=== PATIENT | male | born 1995 | race American Indian/Alaskan Native ===

== ENCOUNTER 2018-01-06 18:10 | Emergency (ER) | payer SELFPAY ==
[2018-01-06 18:59] VITALS: BP 117/74
[2018-01-06 21:04] LABS: Bilirubin,Urine NEG (Negative); Blood,Urine SM (Negative); Color,Urine Yellow (Yellow); Mucus,Urine FEW /HPF; Nitrite,Urine NEG (Negative); Protein,Urine <15 mg/dL mg/dL (Negative)
[2018-01-06 21:05] LABS: WBC,Urine > 182.0 /HPF (0.0-6.0)
[2018-01-07] MEDS ORDERED: ZITHROMAX PO ONE (00:31)
[2018-01-07] MEDS ORDERED: ROCEPHIN IM ONE (00:31)
[2018-01-07] MEDS ORDERED: FLAGYL PO ONE (00:31)
[2018-01-07] MEDS ORDERED: XYLOCAINE 1% MPF 5 mL INFILTRATI ONE (00:31)
--- NOTE | 2018-01-07 00:37 | Emergency Department Report ---
HPI - General Chief Complaint: Medical Clearance Time Seen by Provider: 01/07/18 00:14 - HPI HPI: 22-year-old male presents to ED complaining of pain with urination past 2 days. Patient reports having unprotected intercourse sometime ago. He denies penile pain, penile discharge, scrotal swelling or pain. Patient states only symptom is burning with urination. ED Past Medical Hx - Past Medical History Previous Medical History?: No ED Review of Systems ROS: Stated complaint: BURNING WITH URINATION Other details as noted in HPI Constitutional: denies: chills, fever Eyes: denies: eye pain, eye discharge, vision change ENT: denies: ear pain, throat pain Respiratory: denies: cough, shortness of breath, wheezing Cardiovascular: denies: chest pain, palpitations Endocrine: no symptoms reported Gastrointestinal: denies: abdominal pain, nausea, diarrhea Genitourinary: dysuria, frequency. denies: urgency, hematuria, discharge, testicular pain, testicular mass Musculoskeletal: denies: back pain, joint swelling, arthralgia Skin: denies: rash, lesions Neurological: denies: headache, weakness, paresthesias Psychiatric: denies: anxiety, depression Hematological/Lymphatic: denies: easy bleeding, easy bruising Physical Exam - Physical Exam Vital Signs: Vital Signs 01/06/18 18:57 Temperature 98.6 F Pulse Rate 70 Respiratory 16 Rate Blood Pressure 117/74 O2 Sat by Pulse 100 Oximetry Physical Exam: GENERAL: Alert and oriented x3, no apparent distress, Normal Gait, atraumatic. LUNGS: Symetrical with respiration, No wheezing, no rales or crackles, CTAB. HEART: S1, S2 present, regular rate and rhythm without murmur, no rubs, no gallops. Non tender to palpation ABDOMEN: No organomegaly was noted,Positive bowel sounds, soft, and non- distended. . Nontender to palpation on all Quadrants, NO CVA tenderness. UROGENITAL: No scrotal mass, Scrotum non tender to palpation bilaterally, no hernia, no scars or penile discharge. SKIN: Warm and dry, No lesions, No ulceration or induration present. ED Course Vital Signs 01/06/18 18:57 Temperature 98.6 F Pulse Rate 70 Respiratory 16 Rate Blood Pressure 117/74 O2 Sat by Pulse 100 Oximetry ED Medical Decision Making - Medical Decision Making 22-year-old male presents with STD exposure. ED course: Analysis and gonorrhea and Chlamydia urine sent. Urinalysis positive for leukorrhea Patient received 250 mg of Rocephin, azithromycin 1 g, Flagyl 2 g. Discussed with patient possible STD due to exposure. Discussed with patient findings and treatment Discussed prophylaxis treatment patient is to abstain from sex 7-10 days as treatment. Discussed patient partner knowledge and treatment. Discussed the follow-up with the health department for further STD testing. Patient's alert and oriented times 3. Vital signs are normal patient is in no acute discharge. Patient will be discharged home with instructions. Critical care attestation.: If time is entered above; I have spent that time in minutes in the direct care of this critically ill patient, excluding procedure time. ED Disposition Clinical Impression: STD exposure, Dysuria Disposition: TO HOME OR SELFCARE Is pt being admited?: No Does the pt Need Aspirin: No Condition: Stable Instructions: Sexually Transmitted Diseases (ED), Safe Sex (ED), Dysuria (ED) Additional Instructions: Make sure to follow up with the primary care physician as discussed. Take all your medications as you've been prescribed. If you have any worsening symptoms or develop new symptoms please return to ED immediately. Referrals: RAMY NOLASCO MD [Primary Care Provider] - 3-5 Days [facility] [Outside] - 3-5 Days [facility] [Outside] - 3-5 Days [facility] [Outside] - 3-5 Days [facility] [Outside] - 3-5 Days Forms: Work/School Release Form(ED) Time of Disposition: 00:59
== END 2018-01-07 01:37 | disposition home or self-care (01) ==
LOC: ED 18:10
DX: R30.0 Dysuria (principal); Z20.2 Contact with and (suspected) exposure to infections with a predominantly sexual mode of transmission
CPT/HCPCS: 81001; 96372; 99283; J0696

== ENCOUNTER 2018-07-31 00:50 | Emergency (ER) | payer SELFPAY ==
[2018-07-31 00:59] VITALS: BP 130/88
== END 2018-07-31 05:28 | disposition left against medical advice (07) ==
LOC: ED 00:50
DX: R30.0 Dysuria (principal); Z53.21 Procedure and treatment not carried out due to patient leaving prior to being seen by health care provider

== ENCOUNTER 2019-12-01 13:30 | Emergency (ER) | payer SELFPAY ==
[2019-12-01 13:42] VITALS: BP 129/68
--- NOTE | 2019-12-01 15:53 | Event Note ---
ED Screening Note Date of service: 12/01/19 Time: 15:51 ED Screening Note: 24 y o male presents to Ed stating that his girlfriend was recently treated for chlamydia and wants to be treated he denies any symptoms today This initial assessment/diagnostic orders/clinical plan/treatment(s) is/are s ubject to change based on patients health status, clinical progression and re- assessment by fellow clinical providers in the ED. Further treatment and workup at subsequent clinical providers discretion. Patient/guardian urged not to elope from the ED as their condition may be serious if not clinically assessed and managed. Initial orders include: Pt presents with a non-medical emergency Examination is normal, Vital sign are stable Pt given information for clinics to follow up with pcp for further treatment and evaluation Also discussed strict return precautions in detail with pt who verbalized understanding
== END 2019-12-01 16:10 | disposition left against medical advice (07) ==
LOC: ED 13:30
DX: R30.0 Dysuria (principal); Z53.21 Procedure and treatment not carried out due to patient leaving prior to being seen by health care provider